=== PATIENT | male | born 1955 | race Caucasian/White ===

== ENCOUNTER 2017-04-03 10:43 | Emergency (ER) | payer OTHER ==
--- NOTE | 2017-04-03 12:05 | ED Physician Documentation ---
History of Present Illness - Stated complaint Stated Complaint: DIZZY/LETHARGY - Chief complaint Chief Complaint: General - History obtained from History obtained from: Patient - History of Present Illness Timing: How many days ago (2) - Additonal information Additional information: 62-year-old male with a history of hypertension and GERD has developed acute dizziness with diaphoresis and nausea yesterday morning this has not resolved entirely he continues to have periodic dizziness and a feeling of being in a fog. He has had improvement in his symptoms but continues to have dizziness today and he is come to the emergency department for evaluation. He is able to walk without listing. Review of Systems Constitutional: reports: Sweats. denies: Fever, Chills, Myalgias, Fatigue Eyes: denies: Decreased vision Ears: reports: Tinnitus/ringing. denies: Ear pain Nose: denies: Rhinorrhea / runny nose, Congestion Throat: denies: Sore throat Respiratory: denies: Cough GI: reports: Nausea. denies: Vomiting : denies: Dysuria PD PAST MEDICAL HISTORY - Past Medical History Past Medical History: Yes Cardiovascular: Hypertension GI: GERD : None Psych: Anxiety Musculoskeletal: None - Past Surgical History Past Surgical History: Yes - Present Medications Home Medications: Ambulatory Orders Medication Instructions Recorded Confirmed Lisinopril 10 mg PO DAILY 05/05/13 05/05/13 Omeprazole [PriLOSEC] 10 mg PO 05/05/13 05/05/13 Meclizine HCl 25 mg PO Q6HR PRN #20 tab.chew 04/03/17 - Allergies Allergies/Adverse Reactions: Allergies Allergy/AdvReac Type Severity Reaction Status Date / Time No Known Drug Allergies Allergy Verified 05/05/13 22:44 - Social History Does the pt smoke?: No Smoking Status: Former smoker Does the pt drink ETOH?: Yes Does the pt have substance abuse?: No - Immunizations Immunizations are current?: Yes - POLST Patient has POLST: No PD ED PE NORMAL - Vitals Vital signs reviewed: Yes (Hypertensive) - General General: Alert and oriented X 3, No acute distress, Well developed/nourished - HEENT HEENT: Atraumatic, PERRL, EOMI, Ears normal, Moist mucous membranes, Pharynx benign, Dentition benign, Other (2 beats of nystagmus to the right) - Neck Neck: Supple, no meningeal sign, No bony TTP - Cardiac Cardiac: RRR, No murmur - Respiratory Respiratory: No respiratory distress, Clear bilaterally - Abdomen Abdomen: Soft, Non tender - Back Back: No CVA TTP, No spinal TTP - Derm Derm: Normal color, No rash - Extremities Extremities: No deformity, No edema - Neuro Neuro: Alert and oriented X 3, airborne missions systems 2-12 intact, No motor deficit, No sensory deficit, Normal speech - Psych Psych: Normal mood, Normal affect Results - Vitals Vitals: Vital Signs - 24 hr 04/03/17 04/03/17 04/03/17 10:50 12:11 12:18 Temperature 36.6 C Heart Rate 91 65 Respiratory 18 15 Rate Blood Pressure 138/88 H 135/84 H O2 Saturation 97 97 Oxygen O2 Source Room air - Labs Labs: Laboratory Tests 04/03/17 10:55 POC Whole Bld Glucose 110 H Procedures - IVC sono (time) 1200 Bedside IVC sono: IVC measures (cm) (1.71), Euvolemia PD MEDICAL DECISION MAKING - ED course Complexity details: reviewed old records, reviewed results, considered differential, d/w patient ED course: 62-year-old male with history of hypertension has acute dizziness that is episodic and improved from his initial presentation. His symptoms are consistent with acute labyrinthitis. He does not require treatment here in the emergency department. He is sent home with instructions on maneuvers and labyrinthitis. Departure - Departure Disposition: 01 Home, Self Care Clinical Impression: Labyrinthitis Qualifiers: Laterality: right Qualified Code(s): H83.01 - Labyrinthitis, right ear Condition: Stable Instructions: ED Labyrinthitis Follow-Up: ABRAHAM Akins [Provider Group] Prescriptions: Meclizine HCl 25 mg PO Q6HR PRN #20 tab.chew PRN Reason: Dizziness
[2017-04-03 12:18] VITALS: BP 135/84
== END 2017-04-03 12:22 | disposition home or self-care (01) ==
LOC: ED 10:43
DX: H83.01 Labyrinthitis, right ear (principal); I10 Essential (primary) hypertension; Z87.891 Personal history of nicotine dependence
CPT/HCPCS: 99283

== ENCOUNTER 2019-10-19 13:21 | Emergency (ER) | payer OTHER ==
--- NOTE | 2019-10-19 16:04 | ED Physician Documentation ---
History of Present Illness - Stated complaint Stated Complaint: BLOOD PRESSURE - Chief complaint Chief Complaint: Cardiac - Additonal information Additional information: This is a 64-year-old male who presents with high blood pressure. He has been checking his blood pressure over the last 2 weeks, and It is been elevated. He typically is in the 130s over 80s, and he has had values out of range between 140-160 systolic, over 90-110 diastolic. Intermittently he will have slight blurring of his vision, but this resolves quickly and in between episodes he feels normal. No visual cuts, flashers. His vision feels normal now. No chest pa in, shortness of breath, weakness or numbness. He has an appointment his primary care provider in couple days but when he saw his blood pressure be elevated today he wanted to get checked out sooner.He is on amlodipine 10 mg daily no other blood pressure medications. PD PAST MEDICAL HISTORY - Past Medical History Cardiovascular: Hypertension GI: GERD : None Psych: Anxiety Musculoskeletal: None - Past Surgical History Past Surgical History: Yes - Present Medications Home Medications: Ambulatory Orders Medication Instructions Recorded Confirmed Lisinopril 10 mg PO DAILY 05/05/13 05/05/13 Omeprazole [PriLOSEC] 10 mg PO 05/05/13 05/05/13 Meclizine HCl 25 mg PO Q6HR PRN #20 tab.chew 04/03/17 Losartan Potassium 25 mg PO DAILY #15 tablet 10/19/19 - Allergies Allergies/Adverse Reactions: Allergies Allergy/AdvReac Type Severity Reaction Status Date / Time No Known Drug Allergies Allergy Verified 10/19/19 13:33 - Social History Does the pt smoke?: No Smoking Status: Former smoker Does the pt drink ETOH?: Yes Does the pt have substance abuse?: No - Immunizations Immunizations are current?: Yes - POLST Patient has POLST: No PD ED PE NORMAL - Vitals Vital signs reviewed: Yes - General General: Alert and oriented X 3, No acute distress - HEENT HEENT: PERRL, EOMI - Neck Neck: Supple, no meningeal sign - Cardiac Cardiac: RRR - Respiratory Respiratory: No respiratory distress, Clear bilaterally - Abdomen Abdomen: Soft, Non tender, Non distended - Derm Derm: Warm and dry - Extremities Extremities: No deformity - Neuro Neuro: Alert and oriented X 3, production support specialist 2-12 intact, No motor deficit, No sensory deficit, Normal speech - Psych Psych: Normal mood, Normal affect Results - Vitals Vitals: Oxygen O2 Source Room air - EKG (time done) 16:56 Other comments: Other comments (Rate 92, rhythm sinus, the no ST segment elevation or depression, no T wave inversions.Intervals within normal limits. ) - Labs Labs: Laboratory Tests 10/19/19 10/19/19 16:41 16:41 WBC 5.3 RBC 5.35 Hgb 16.2 Hct 47.1 MCV 88.0 MCH 30.3 MCHC 34.4 RDW 12.3 Plt Count 246 MPV 8.9 Neut # (Auto) 3.8 Lymph # (Auto) 1.0 L [place] # (Auto) 0.4 Eos # (Auto) 0.0 Baso # (Auto) 0.0 Absolute Nucleated RBC 0.00 Nucleated RBC % 0.0 Sodium 139 Potassium 3.8 Chloride 101 Carbon Dioxide 27 Anion Gap 11.0 BUN 14 Creatinine 0.9 Estimated GFR (MDRD) 85 L Glucose 106 H Calcium 9.7 PD MEDICAL DECISION MAKING - ED course Complexity details: considered differential ED course: Pt is well-appearing on exam, he has had HTN that has been less than ideally controlled for a while now but comes into the ED because his numbers were a bit higher today, he does not have any new symptoms today. He occasionally gets slight vision blurring, but has none at this time and has no neurologic abnormalities on exam. No headache, numbness, weakness. No chest pain or shortness of breath, creatinine is normal, CBC and electrolytes unremarkable. EKG without signs of ischemia or dysrhythmia. No signs of hypertensive emergency today and his BP downtrends here to 140s/90s on my repeat measurement. I did start him on low dose losartan with instructions to continue to log his BP and follow up with his PCP in a few days as scheduled. I also reviewed return precautions. Pt continues to be asymptomatic and was discharged home in good condition. Departure - Departure Disposition: Home, Self Care Clinical Impression: Hypertension Qualifiers: Hypertension type: unspecified Qualified Code(s): I10 - Essential (primary) hypertension Condition: Good Prescriptions: Losartan Potassium 25 mg PO DAILY #15 tablet Comments: You were seen today for high blood pressure, we are starting you on a new medication, please take it as prescribed and continue to log your blood pressure. Follow-up with your primary care provider as scheduled. If you develop severe headache, passing out, vision changes that are persistent, numbness or weakness, or other concerning symptoms return to the emergency department. Discharge Date/Time: 10/19/19 17:33
[2019-10-19] MEDS ORDERED: LOSARTAN 50 MG TABLET PO STA (16:31)
[2019-10-19 16:44] LABS: BASOPHILS % (AUTO) 0.6 %; EOSINOPHILS % (AUTO) 0.6 %; HGB - HEMOGLOBIN 16.2 g/dL (14.0-18.0); LYMPHOCYTES % (AUTO) 18.9 %; MEAN CORPUSCULAR HEMOGLOBIN 30.3 pg (27.0-31.0); MEAN CORPUSCULAR HGB CONC 34.4 g/dL (32.0-36.0); MEAN PLATELET VOLUME 8.9 fL (7.4-11.4); MONOCYTES # (AUTO) 0.4 10^3/uL (0.0-1.0); NEUTROPHILS # (AUTO) 3.8 10^3/uL (1.5-6.6); NEUTROPHILS % (AUTO) 72.7 %; PLT - PLATELET COUNT 246 10^3/uL (130-450); RED BLOOD COUNT 5.35 10^6/uL (4.70-6.10); RED CELL DISTRIBUTION WIDTH 12.3 % (12.0-15.0); WHITE BLOOD COUNT 5.3 x10^3/uL (4.8-10.8)
[2019-10-19 16:52] LABS: CALCIUM 9.7 mg/dL (8.5-10.3); CREATININE 0.9 mg/dL (0.6-1.2)
[2019-10-19 17:35] VITALS: BP 143/112
== END 2019-10-19 17:33 | disposition home or self-care (01) ==
LOC: ED 13:21
DX: I10 Essential (primary) hypertension (principal); Z87.891 Personal history of nicotine dependence
CPT/HCPCS: 36415; 80048; 85025; 93005; 99281; 99283; A9270